=== PATIENT | female | born 1975 | race Caucasian/White ===

== ENCOUNTER → 2016-12-22 | Outpatient (CLI) | payer BC, MEDICARE | LOC: YCFC.O 11:31 | PROVIDERS: ATTEND Nurse Practitioner Family | DX: E03.9 Hypothyroidism, unspecified (principal); I10 Essential (primary) hypertension; Z13.220 Encounter for screening for lipoid disorders ==

== ENCOUNTER → 2018-02-20 | Outpatient (CLI) | payer MEDICARE | LOC: YCFC.O 09:42 | PROVIDERS: ATTEND Nurse Practitioner Family | DX: E03.9 Hypothyroidism, unspecified (principal); R53.83 Other fatigue; I10 Essential (primary) hypertension; M32.9 Systemic lupus erythematosus, unspecified; D64.9 Anemia, unspecified; R73.09 Other abnormal glucose; Z13.220 Encounter for screening for lipoid disorders; Z13.1 Encounter for screening for diabetes mellitus ==

== ENCOUNTER → 2018-07-04 | Outpatient (CLI) | payer MEDICARE | LOC: RESP 10:05 | PROVIDERS: ATTEND Nurse Practitioner Family | DX: R00.2 Palpitations (principal) ==

== ENCOUNTER → 2019-01-17 | Outpatient (CLI) | payer MEDICARE ==
--- NOTE | 2019-01-17 17:24 | US ---
EXAM DESCRIPTION: OB ,Early (0-14wks): Ultrasound. CLINICAL HISTORY: 43 years Female positive test. 7, para 6, AB 0. LMP 12/06/2018. EGA 6 weeks and 0 days. COMPARISON: None. TECHNIQUE: Transpelvic scanning through the urine filled bladder: Endovaginal scannin-dimensional and Doppler modes. FINDINGS: Uterus: Uterus is not retroverted. Dimensions are 9.0 x 4.3 x 6.2 cm. Endometrial thickness 7.2 mm. Minimal fluid in the endometrial cavity. Gestational sac: Not seen. AFV: No amniotic fluid. pole: Not seen. Yolk sac: Not seen. Subchorionic hemorrhage: None. heart tones: None. Cul-de-sac: No fluid. Comments: Minimal fluid in the endometrial cavity could represent early decidual reaction, but no definite gestational sac. Right ovary 2.2 x 1.8 x 1.4 cm. 2.9 mL. Normal waveform and color Doppler vascularity. No dominant cyst.. No adnexal mass or free fluid. Left ovary not seen. No adnexal mass or free fluid. IMPRESSION: 1. Possible decidual reaction in the endometrium with fluid but no gestational sac. Uterus in normal position. Cervix unremarkable. 2. Right ovary is unremarkable. No dominant cyst or solid mass. No fluid. Left ovary not seen in the left adnexa but no left adnexal mass or fluid. Consider follow-up ultrasound examination in one week interval. Electronically signed by: Steven Colon MD 01/17/2019 5:21 PM [facility]
== END ==
LOC: US 13:03
PROVIDERS: ATTEND Nurse Practitioner Family
DX: Z32.01 Encounter for pregnancy test, result positive (principal)